=== PATIENT | male | born 1980 | race Caucasian/White ===

== ENCOUNTER 2016-06-29 22:10 | Emergency (ER) | payer OTHER ==
[~2016-06-29] VITALS: Ht 182.9 cm; Wt 90.9 kg
[2016-06-29 22:13] VITALS: BP 133/89; PULSE 88; RESP 16; O2SAT 98
--- NOTE | 2016-06-30 00:57 | ED.REPORT ---
HPI-Overdose/Alcohol Toxicity Date of Service June 30, 2016 ED Provider: Nirav Hensley MD Pt is a 36 y.o. male with a hx of ETOH abuse who presents to the ED seeking detox from ETOH. Pt states that his last ETOH use was one hour prior to arrival. Pt states that he has a bed at [facility] and needs an evaluation and taper. Pt states that he relapsed approximately 3 months ago after a 90 day treatment program. He denies a hx of withdrawal seizures. He reports associated shaking. Nursing Notes Stated Complaint: [facility] Chief Complaint: Substance Abuse Nursing Notes Reviewed: Yes Allergies: Coded Allergies: No Known Allergies (Unverified , 06/29/16) General Time Seen by Provider: 00:56 Chief Complaint Intoxicated, alcohol Modifying Factors: Intentional Initial Psychiatric Assessment: Deny suicidal intent/plan Hx Obtained From: Patient Arrived By: Walk-in Onset Occurred: 1 - 4 hours ago Symptom Duration: Since onset Risk-Overdose/Alcohol Tox )( Suicide Risk Stratification RF Statements: Risk factors reviewed Past Medical History Past Medical History Anxiety Previous suicide attempt Alcohol abuse Past Surgical History None reported Smoking History Unknown if Ever Smoker Social History Has three children who live with their mother Alcohol Use: >5 per day Occupation [employer] Ambulatory Status Independent Review of Systems ETOH intoxication GI: Denies: Nausea, Vomiting Neurologic: Reports: Shaking Psychiatric: Denies: Suicidal ideation Complete sys rev & neg: except as marked. Physical Exam Initial Vital Signs Vital Signs (First) Date Time Temp Pulse Resp B/P Pulse Ox O2 Delivery O2 Flow Rate FiO2 06/29/16 22:13 36.0 88 16 133/89 98 Room Air Initial VS: Reviewed, Vital signs normal Head / Eyes: Atraumatic, Normocephalic, PERRL Extremities: Vascular intact, Neuro intact Skin: Warm, Dry, No cyanosis General/Constitutional: Awake, Alert, Well appearing, Well developed, Well hydrated, Well nourished, Not toxic appearing Appearance / Presentation: Positive: Intoxicated Respiratory / Chest: Atraumatic, Breath sounds NL, No respiratory distress Cardiovascular: Heart rate NL, Regular rhythm, Heart sounds NL Abdomen: Atraumatic, No distention Neurologic: Oriented X3, Speech NL, No motor deficits, Gait NL Speech: Negative: Slurred Psychiatric: Affect NL, Mood NL, Not suicidal, Not homicidal, No hallucinations Interpretation & Diagnostics Lab Results Interpretation Test 06/30/16 00:43 Hold Urine Received (Received) Re-Eval/Medical Decision Med Decision/Clinical Course 36-year-old male with a 3 month relapse desires to detox with the assistance [facility] Arrangements were all made and he was transferred there. Source of Hx: Old records Re-Evaluation/Progress : Time of Eval: 01:11 Re-Evaluation/Progress Note: Contacted [facility] to verify pt's bed status. Pt has a bed available. Counseled Regarding: Diagnosis, Lab results, Need for follow-up, When/why to return to ED Discharge & Departure Impression: Primary Impression: Alcohol withdrawal Complication of substance-induced condition: uncomplicated Qualified Code: F10.230 - Alcohol dependence with withdrawal, uncomplicated Additional Impression: Alcohol abuse )( Condition at Discharge: No danger to self, No danger to others, No suicidal ideation, No homicidal ideation, Clear for alcohol rehab Disposition: Home Discharge Condition All VS Reviewed: Yes Condition: Improved Patient Instructions: Alcohol Withdrawal (ED) Additional Instructions: Go directly to [facility]. Ativan taper, please see accompanying prescription. Referrals: [facility] (PCP) [facility] Att[facility] Portions of this note were transcribed by Brenda Navarro. I, personally performed the history, physical exam and medical decision-making; I reviewed and confirmed the accuracy of the information in the transcribed note. Signed by: Zack Rader, 06/30/16 and 0114 Nirav Hensley MD June 30, 2016 00:57 BRENDA NAVARRO June 30, 2016 01:04
[2016-06-30] MEDS ORDERED: _LORazepam 2 MG Tablet PO SCH (01:15)
[2016-06-30 02:06] VITALS: BP 146/108; PULSE 91; RESP 16; O2SAT 96
== END 2016-06-30 02:17 | disposition home or self-care (01) ==
LOC: SED 22:10
DX: F10.230 Alcohol dependence with withdrawal, uncomplicated (principal)